=== PATIENT | female | born 1975 | race Hispanic/Latino ===

== ENCOUNTER → 2020-03-20 | Outpatient (RCR) | payer OTHER | LOC: OT 02-27 08:46 | PROVIDERS: ATTEND Orthopaedic Surgery | DX: S52.531D Colles' fracture of right radius, subsequent encounter for closed fracture with routine healing (principal); M25.531 Pain in right wrist; M25.631 Stiffness of right wrist, not elsewhere classified; R53.1 Weakness ==

== ENCOUNTER 2020-04-18 10:52 | Outpatient (RCR) | payer OTHER | END 2020-04-20 | LOC: OT 10:52 | PROVIDERS: ATTEND Orthopaedic Surgery | DX: S52.531D Colles' fracture of right radius, subsequent encounter for closed fracture with routine healing (principal); M25.531 Pain in right wrist; M25.631 Stiffness of right wrist, not elsewhere classified; R53.1 Weakness ==

== ENCOUNTER 2020-05-11 10:54 | Outpatient (RCR) | payer OTHER | END 2020-05-21 | LOC: OT 10:54 | PROVIDERS: ATTEND Orthopaedic Surgery | DX: S52.531D Colles' fracture of right radius, subsequent encounter for closed fracture with routine healing (principal) ==